=== PATIENT | male | born 1990 | race Two or more races ===

== ENCOUNTER 2022-02-25 09:07 | Emergency (ER) | payer OTHER ==
[~2022-02-25] VITALS: Ht 188 cm; Wt 117.0 kg
[2022-02-25] MEDS ORDERED: LIDOCAINE 1% HCL (LOCAL ANESTH.) INJ 20ML MDV IJ ONE (11:15)
[2022-02-25] MEDS ORDERED: IBUP600T28 PO ×2 (11:15→12:37)
[2022-02-25] MEDS ORDERED: KETOROLAC TROMETH 30 MG/ML 1ML VIAL IM ONE (11:15)
[2022-02-25] MEDS ORDERED: CEPH-510 PO ×2 (12:15→12:37)
[2022-02-25] MEDS ORDERED: ONDANSETRON ODT 4 MG TAB PO ONE (12:45)
[2022-02-25 13:09] VITALS: BP 104/68
== END 2022-02-25 13:28 | disposition home or self-care (01) ==
LOC: ER 09:07
DX: S81.811A Laceration without foreign body, right lower leg, initial encounter (principal); Z79.1 Long term (current) use of non-steroidal anti-inflammatories (NSAID); Z79.899 Other long term (current) drug therapy; W01.198A Fall on same level from slipping, tripping and stumbling with subsequent striking against other object, initial encounter; Y93.89 Activity, other specified; Y92.89 Other specified places as the place of occurrence of the external cause; Y99.8 Other external cause status
CPT/HCPCS: 12002; 73590; 96372; 99283; J1885; J2001